=== PATIENT | female | born 1960 | race Caucasian/White ===

== ENCOUNTER → 2020-05-26 10:04 | Outpatient (CLI) | payer BC, SELFPAY ==
--- NOTE | ~2020-05-26 | XR_ITS ---
EXAMINATION: XR abdomen/kub 1V INDICATION: Calculus of the ureter TECHNIQUE: Supine views of the abdomen were obtained on 2 radiographs. COMPARISON: 05/23/2019 FINDINGS: There is a stable 3 mm stone of left kidney lower pole. The bowel gas pattern is normal. Ch olecystectomy clips are noted in the right upper quadrant. The visualized lung bases are clear. There are multiple phleboliths of the pelvis. IMPRESSION: 1. Stable left nephrolithiasis. Reviewed, dictated and finalized at location B.
== END ==
PROVIDERS: Visit Provider Urology
DX: N20.1 Calculus of ureter (principal)
CPT/HCPCS: 74018

== ENCOUNTER → 2021-05-18 08:40 | Outpatient (CLI) | payer BC, SELFPAY ==
--- NOTE | ~2021-05-18 | XR_ITS ---
EXAMINATION: XR abdomen/kub 1V INDICATION: Calculus of the kidney TECHNIQUE: Supine views of the abdomen were obtained on 2 radiographs. COMPARISON: 05/26/2020 FINDINGS: There is a stable 2 mm stone projecting in the left kidney lower pole. There are phlebolith s of the pelvis. No stones are identified in the expected location of the ureters or bladder. Surgica l clips in the right upper quadrant are likely from prior cholecystectomy. The lung bases are clear. There is a moderate volume of colonic stool. Mild hip osteoarthritis is noted. IMPRESSION: 1. Stable left nephrolithiasis. Reviewed, dictated and finalized at location B.
== END ==
PROVIDERS: PCP Nurse Practitioner Family; Visit Provider Urology
DX: N20.0 Calculus of kidney (principal)
CPT/HCPCS: 74018

== ENCOUNTER 2021-08-12 08:39 | Outpatient (CLI) | payer BC, SELFPAY ==
[2021-08-12 09:29] LABS: Basophils Absolute Auto 0.1 K/mm3 (0.0-0.1); Basophils Percent Auto 1.2 % (0.2-1.2); Eosinophils Absolute Auto 0.2 K/mm3 (0-0.3); Eosinophils Percent Auto 3.2 % (0-4.4); Hematocrit 45.3 % (37.0-47.0); Hemoglobin 15.2 g/dL (12.0-15.0); Immature Granulocyte Absolute 0.02 K/mm3 (0.00-0.031); Immature Granulocyte Percent A 0.4 % (0-0.5); Lymphocytes Absolute Auto 1.09 K/mm3 (0.9-3.2); Lymphocytes Percent Auto 21.9 % (18.3-44.2); Mean Corpuscular HGB Conc 33.6 g/dl (32-36); Mean Corpuscular Hemoglobin 30.5 pg (26-34); Mean Corpuscular Volume 90.8 fl (80-100); Mean Platelet Volume 9.4 fl (7.4-10.4); Monocytes Absolute Auto 0.5 K/mm3 (0.1-0.6); Monocytes Percent Auto 9.7 % (2.6-8.5); Neutrophils Absolute Auto 3.2 K/mm3 (1.3-6.7); Neutrophils Percent Auto 63.6 % (45.5-73.1); Platelet Count Result 340 k/mm3 (150-375); Red Blood Count 4.99 M/mm3 (4.2-5.4); Red Cell Distribution Width 16.5 % (11.5-14.5)
[2021-08-12 09:49] LABS: Alanine Aminotransferase 32 U/L (4-35); Albumin Level 4.5 g/dL (3.5-5.1); Alkaline Phosphatase 97 U/L (38-126); Anion Gap 6 mmol/L (8-16); Aspartate Amino Transferase 36 U/L (14-36); Bilirubin,Total 0.2 mg/dL (0.2-1.3); Blood Urea Nitrogen 15 mg/dL (7-17); Calcium 10.1 mg/dL (8.4-10.2); Carbon Dioxide 28 mmol/L (22-30); Chloride 105 mmol/L (98-107); Estimated Glomerular Filt Rate > 60; Glucose 100 mg/dL (65-110); Potassium 4.3 mmol/L (3.4-5.0); Sodium 139 mmol/L (137-145)
[2021-08-12 10:51] LABS: Iron 103 ug/dL (37-170)
[2021-08-12 10:55] LABS: Hepatitis B Surface Antigen Negative (Negative)
[2021-08-12 11:01] LABS: HAV RESULT Negative (Negative); Hepatitis B Core IgM Result Negative (Negative); Percent Iron Saturation 32 % (20-50)
[2021-08-12 11:12] LABS: Hepatitis C Virus Antibody Negative (Negative)
== END 2021-08-12 08:40 | disposition home or self-care (01) ==
PROVIDERS: PCP Nurse Practitioner Family; Visit Provider Nurse Practitioner Family
DX: R74.01 Elevation of levels of liver transaminase levels (principal); Z11.59 Encounter for screening for other viral diseases; L50.9 Urticaria, unspecified
CPT/HCPCS: 36415; 80053; 80074; 83520; 83540; 83550; 85025

== ENCOUNTER → 2021-11-26 08:26 | Outpatient (CLI) | payer BC, SELFPAY ==
--- NOTE | ~2021-11-26 | CT_ITS ---
EXAMINATION: CT sinus wo con DATE: 11/26/2021 08:45 INDICATION: Sinusitis. Lesion of the paranasal sinuses seen on outside MRI. TECHNIQUE: Computed tomography (CT) of the paranasal sinuses was performed without intravenous contra st. The dose-length product was 295.05 mGy-cm. Automated exposure control and iterative reconstructio n technique were employed. COMPARISON: None FINDINGS: There is mucosal thickening of the left frontoethmoid recess. Leftward nasal septal deviati on. Ostiomeatal units are patent. No air-fluid levels. Minimal mucosal thickening of the right maxill albert sinus. Mastoids are pneumatized. No depressed skull fractures. IMPRESSION: 1. Mild sinus disease involving the left frontal-ethmoid recess and right maxillary sinus. 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 Mild sinus disease involving the left frontal-ethmoid recess and right maxil piper sinus.
== END ==
PROVIDERS: PCP Nurse Practitioner Family; Visit Provider Nurse Practitioner Family
DX: J34.89 Other specified disorders of nose and nasal sinuses (principal); J32.8 Other chronic sinusitis
CPT/HCPCS: 70486

== ENCOUNTER 2022-01-13 08:26 | Outpatient (CLI) | payer BC, SELFPAY ==
[2022-01-13 09:30] LABS: Basophils Absolute Auto 0.1 K/mm3 (0.0-0.1); Basophils Percent Auto 1.4 % (0.2-1.2); Eosinophils Absolute Auto 0.2 K/mm3 (0-0.3); Eosinophils Percent Auto 4.5 % (0-4.4); Hemoglobin 14.6 g/dL (12.0-15.0); Immature Granulocyte Absolute 0.02 K/mm3 (0.00-0.031); Immature Granulocyte Percent A 0.4 % (0-0.5); Lymphocytes Absolute Auto 1.04 K/mm3 (0.9-3.2); Lymphocytes Percent Auto 21.2 % (18.3-44.2); Mean Corpuscular Hemoglobin 31.1 pg (26-34); Mean Corpuscular Volume 91.7 fl (80-100); Mean Platelet Volume 9.6 fl (7.4-10.4); Monocytes Absolute Auto 0.4 K/mm3 (0.1-0.6); Neutrophils Absolute Auto 3.1 K/mm3 (1.3-6.7); Neutrophils Percent Auto 63.5 % (45.5-73.1); Platelet Count Result 320 k/mm3 (150-375); Red Blood Count 4.69 M/mm3 (4.2-5.4); Red Cell Distribution Width 13.5 % (11.5-14.5); White Blood Count 4.9 K/mm3 (4.5-10.0)
[2022-01-13 09:47] LABS: Alanine Aminotransferase 24 U/L (4-35); Albumin Level 4.3 g/dL (3.5-5.1); Alkaline Phosphatase 89 U/L (38-126); Anion Gap 3 mmol/L (8-16); Aspartate Amino Transferase 33 U/L (14-36); Bilirubin,Total 0.4 mg/dL (0.2-1.3); Blood Urea Nitrogen 20 mg/dL (7-17); Calcium 9.6 mg/dL (8.4-10.2); Carbon Dioxide 28 mmol/L (22-30); Chloride 107 mmol/L (98-107); Estimated Glomerular Filt Rate > 60; Glucose 98 mg/dL (65-110); Potassium 3.8 mmol/L (3.4-5.0); Sodium 138 mmol/L (137-145)
== END 2022-01-13 08:27 | disposition home or self-care (01) ==
PROVIDERS: PCP Nurse Practitioner Family
DX: Z51.81 Encounter for therapeutic drug level monitoring (principal); Z79.899 Other long term (current) drug therapy; D47.01 Cutaneous mastocytosis
CPT/HCPCS: 36415; 80053; 83520; 85025

== ENCOUNTER 2022-11-23 21:34 | Outpatient (NON) | payer BC, SELFPAY | END 2022-11-23 21:35 | disposition home or self-care (01) | LOC: ANHLAB 21:35 | PROVIDERS: PCP Family Medicine; Visit Provider Nurse Practitioner Family | DX: R31.9 Hematuria, unspecified (principal) | CPT/HCPCS: 87086 ==

== ENCOUNTER 2022-12-02 15:59 | Outpatient (CLI) | payer BC, SELFPAY ==
--- NOTE | ~2022-12-02 | CT_ITS ---
EXAMINATION: CT abdomen pelvis wo con DATE: 12/02/2022 16:22 INDICATION: Left flank pain. TECHNIQUE: Computed tomography (CT) of the abdomen and pelvis was performed without intravenous contr ast. Automated exposure control and iterative reconstruction technique were employed. The dose-length product was 448.07 mGy-cm. COMPARISON: CT abdomen and pelvis 05/31/2019 FINDINGS: The visualized portions of the lung bases demonstrate mild atelectasis. No pleural effusion . The heart size is normal. No pericardial effusion. There is a small sliding hiatal hernia. The live r and spleen are normal. There are changes of cholecystectomy. The pancreas, adrenal glands, and righ t kidney are normal. There are 1 mm and 4 mm stones in left kidney. There is diverticulosis of the co ian without evidence of diverticulitis. There are no dilated loops of bowel. The appendix is not visu alized. There are no pathologically enlarged lymph nodes. There is no free intraperitoneal fluid. The re is a right inguinal hernia containing fat. There is lumbar levocurvature and severe spondylosis. IMPRESSION: 1. Nonobstructing left kidney stones. 2. Small sliding hiatal hernia. Reviewed, dictated and finalized at location A. R OPERATOR
== END 2022-12-02 16:00 | disposition home or self-care (01) ==
PROVIDERS: PCP Family Medicine; Visit Provider Nurse Practitioner Family
DX: K44.9 Diaphragmatic hernia without obstruction or gangrene (principal); N20.0 Calculus of kidney
CPT/HCPCS: 74176

== ENCOUNTER → 2023-07-08 08:10 | Outpatient (CLI) | payer BC, SELFPAY ==
--- NOTE | ~2023-07-08 | US_ITS ---
EXAMINATION: US abdomen complete DATE: 07/08/2023 08:40 INDICATION: Elevated liver enzymes TECHNIQUE: Multiple grayscale and Doppler ultrasound images of the abdomen were obtained. COMPARISON: CT, 12/02/2022 FINDINGS: The head and body of the pancreas are normal. The pancreatic tail is obscured by bowel gas. The liver is normal with normal echogenicity and echotexture. No surface nodularity. Normal hepatope ana flow in the main portal vein. The gallbladder is surgically absent. The normal common bile duct m easures 4 mm. The visualized portions of the aorta and inferior vena cava are normal. The spleen is normal in appearance and measures 7.7 cm. The right kidney measures 11.3 x 4.0 x 4.4 cm . The left kidney measures 13.2 x 5.3 x 5.4 cm. The kidneys demonstrate normal parenchymal echogenici ty. There is no hydronephrosis. IMPRESSION: 1. No sonographic correlate for the patient's symptoms. Reviewed, dictated and finalized at location B.
== END ==
PROVIDERS: PCP Family Medicine; Visit Provider Nurse Practitioner Family
DX: R74.01 Elevation of levels of liver transaminase levels (principal)
CPT/HCPCS: 76700

== ENCOUNTER 2023-08-19 00:38 | Day surgery (SDC) | payer BC, SELFPAY ==
[2023-08-10 09:25] VITALS: BMI 25.9
--- NOTE | 2023-08-18 13:28 | PM.HPGS ---
History of Present Illness History of Present Illness Consent: Risks, benefits, and alternatives have been discussed and questions answered. Patient agrees to proceed with procedure. Chief complaint: Fam hx of neoplasm of digestive organs Narrative: Hetal Alonzo is a 63 year old female Referred for colonoscopy due to family history of colon cancer. Review of Systems Review of Systems: All systems reviewed & are unremarkable except as noted in HPI and below PMFSH Past Medical History Medical History Arthritis Diverticulitis Fibroids Finger fracture History of kidney stones Holter monitor, abnormal Mastocytosis (~07/2021) Migraine Palpitations Surgical History Surgical History H/O cystoscopy H/O lithotripsy H/O: hysterectomy History of cholecystectomy History of hip surgery (~2018) RT hip ligament repair History of rhinoplasty History of tubal ligation Family History Family History Grandparent Carcinoma of colon Family history of heart disease in male family member before age 55 Father Family history of diabetes mellitus in first degree relative Family history of heart disease in male family member before age 55 Social History Social History Smoking status: Never smoker Alcohol intake: never Substance use: never Substance use type: does not use Lack of Transportation: No Lack of Food: Never True Current Housing: I Have Housing Concerned About Future Housing: No Difficulty Paying Gas/Electric Bills: No Difficulty Paying for Meds: No Currently Unemployed: No Education: Trade/Vocational Certificate Difficulty w/ Childcare or Family Care: No Gender identity (if verbalized by the patient): Female Meds Home Medications and Allergies Home Medications Medication Instructions Recorded Confirmed Type fluticasone propionate 50 2 spray intranasal BID #16 mL 12/09/21 08/10/23 Rx mcg/actuation nasal spray,suspension (Flonase Allergy Relief) estradiol 0.0375 mg/24 hr 1 patch transdermal 2XW 11/23/22 08/10/23 History semiweekly transdermal patch estradiol 10 mcg vaginal tablet 10 mcg vaginal 2XW 11/23/22 08/10/23 History sumatriptan succinate 50 mg tablet 50 mg PO ONCE PRN Migraines 11/23/22 08/10/23 History azelastine 137 mcg (0.1 %) nasal 1 spray intranasal Q12H PRN 07/05/23 08/10/23 History spray aerosol allergies nortriptyline 25 mg capsule 25 mg PO DAILY 07/05/23 08/10/23 History Allergies Allergy/AdvReac Type Severity Reaction Status Date / Time verapamil AdvReac Mild Chest Pain Verified 08/19/23 09:48 Exam Const: General: alert Orientation/consciousness: patient oriented x3 Resp: Auscultation: clear to auscultation bilaterally Cardio: Rhythm: regular rhythm GI: GI Palp: Yes Soft to palpation and No Tenderness to palpation present (GI) Neuro: General: patient oriented x3 Assessment and Plan Assessment and plan (1) Colon cancer screening: Code(s): Z12.11 - Encounter for screening for malignant neoplasm of colon Status: Acute Assessment and Plan: Colonoscopy with possible biopsy or polypectomy or cautery or injection of substances.
[2023-08-19 09:50] VITALS: BP 150/94; PULSE 107; RESP 18; TEMP 36.6; O2SAT 100
[2023-08-19] MEDS: LACTATED RINGERS 1,000 ML 150 ML IV CONT (09:57)
--- NOTE | 2023-08-19 10:40 | WPDANESEPPF ---
Anes - Initial Pre Proc Eval Procedure: Operation Date: 08/19/23 10:45 Proposed Procedures p Colonoscopy - Alli Diaz MD Date/Time: 08/19/23 10:40 Surgeon: Alli Diaz MD Pre Op Diagnosis: Fam hx of neoplasm of digestive organs Patient Data Age: 63 Gender: F Height: 1.68 m Weight: 69.6 kg Last Vital Signs Temp 97.9 F 08/19/23 09:50 Pulse 107 H 08/19/23 09:50 Resp 18 08/19/23 09:50 BP 150/94 H 08/19/23 09:50 Pulse Ox 100 08/19/23 09:50 O2 Del Method Room Air 08/19/23 09:50 Allergies Allergy/AdvReac Type Severity Reaction Status Date / Time verapamil AdvReac Mild Chest Pain Verified 08/19/23 09:48 Home Medications Medication Instructions Recorded Confirmed Type fluticasone propionate 50 2 spray intranasal BID #16 mL 12/09/21 08/10/23 Rx mcg/actuation nasal spray,suspension (Flonase Allergy Relief) estradiol 0.0375 mg/24 hr 1 patch transdermal 2XW 11/23/22 08/10/23 History semiweekly transdermal patch estradiol 10 mcg vaginal tablet 10 mcg vaginal 2XW 11/23/22 08/10/23 History sumatriptan succinate 50 mg tablet 50 mg PO ONCE PRN Migraines 11/23/22 08/10/23 History azelastine 137 mcg (0.1 %) nasal 1 spray intranasal Q12H PRN 07/05/23 08/10/23 History spray aerosol allergies nortriptyline 25 mg capsule 25 mg PO DAILY 07/05/23 08/10/23 History Patient hx anesthesia problems: none Family hx anesthesia problems: none Results Review: All pre-operative results and documents have been reviewed as part of the pre-operative evaluation. [facility] Past Medical History Medical History Arthritis Diverticulitis Fibroids Finger fracture History of kidney stones Holter monitor, abnormal Mastocytosis (~07/2021) Migraine Palpitations Surgical History Surgical History H/O cystoscopy H/O lithotripsy H/O: hysterectomy History of cholecystectomy History of hip surgery (~2019) RT hip ligament repair History of rhinoplasty History of tubal ligation Family History Family History Grandparent Carcinoma of colon Family history of heart disease in male family member before age 55 Father Family history of diabetes mellitus in first degree relative Family history of heart disease in male family member before age 55 Social History Social History Smoking status: Never smoker Alcohol intake: never Substance use: never Substance use type: does not use Lack of Transportation: No Lack of Food: Never True Current Housing: I Have Housing Concerned About Future Housing: No Difficulty Paying Gas/Electric Bills: No Difficulty Paying for Meds: No Currently Unemployed: No Education: Trade/Vocational Certificate Difficulty w/ Childcare or Family Care: No Gender identity (if verbalized by the patient): Female Anes - Eval Final PreProcedure Day of Procedure 08/19/23 10:40 Patient weight: normal Heart: regular rate and rhythm Lungs: clear to auscultation Airway: Mallampati scale class II Neurological: alert and oriented Last oral intake: >/= 8 hours ASA classification: II Emergent: no Anesthetic plan: proceed Anesthesia type and monitoring: general GIVS and standard monitoring Results Review: All pre-operative results and documents have been reviewed as part of the pre-operative evaluation. Informed Consent: The patient's anesthetic plan and its attendant risks and benefits were discussed with the patient/family/POA. Questions were solicited and answers provided to the satisfaction of the patient/family/POA.
[2023-08-19 11:16] VITALS: BP 121/80; PULSE 80; RESP 15; O2SAT 100
[2023-08-19 11:26] VITALS: BP 115/65; PULSE 86; RESP 13; O2SAT 100
[2023-08-19 11:36] VITALS: BP 132/86; PULSE 86; RESP 13; O2SAT 100
== END 2023-08-19 11:50 | disposition home or self-care (01) ==
PROVIDERS: PCP Family Medicine; Visit Provider Internal Medicine Gastroenterology
PROC: 0DJD8ZZ Inspection of Lower Intestinal Tract, Via Natural or Artificial Opening Endoscopic (ICD-10-PCS; CPT 45378; principal; 2023-08-19 10:45)
DX: Z12.11 Encounter for screening for malignant neoplasm of colon (principal); K64.8 Other hemorrhoids; K57.30 Diverticulosis of large intestine without perforation or abscess without bleeding; Z80.0 Family history of malignant neoplasm of digestive organs
CPT/HCPCS: 45378; J2704; J7120

== ENCOUNTER 2024-02-01 10:36 | Outpatient (CLI) | payer BC, SELFPAY ==
[2024-02-01 12:17] LABS: Basophils Absolute Auto 0.1 K/mm3 (0.0-0.1); Basophils Percent Auto 1.5 % (0.2-1.2); Eosinophils Absolute Auto 0.2 K/mm3 (0-0.3); Eosinophils Percent Auto 3.9 % (0-4.4); Hematocrit 44.8 % (37.0-47.0); Hemoglobin 14.4 g/dL (12.0-15.0); Immature Granulocyte Absolute 0.02 K/mm3 (0.00-0.031); Immature Granulocyte Percent A 0.4 % (0-0.5); Lymphocytes Absolute Auto 1.37 K/mm3 (0.9-3.2); Lymphocytes Percent Auto 25.4 % (18.3-44.2); Mean Corpuscular HGB Conc 32.1 g/dl (32-36); Mean Corpuscular Hemoglobin 29.5 pg (26-34); Mean Corpuscular Volume 91.8 fl (80-100); Mean Platelet Volume 9.6 fl (7.4-10.4); Monocytes Absolute Auto 0.5 K/mm3 (0.1-0.6); Monocytes Percent Auto 9.3 % (2.6-8.5); Neutrophils Absolute Auto 3.2 K/mm3 (1.3-6.7); Neutrophils Percent Auto 59.5 % (45.5-73.1); Platelet Count Result 398 k/mm3 (150-375); Red Blood Count 4.88 M/mm3 (4.2-5.4); Red Cell Distribution Width 15.9 % (11.5-14.5); White Blood Count 5.4 K/mm3 (4.5-10.0)
[2024-02-01 12:25] LABS: Alanine Aminotransferase 36 U/L (6-35); Albumin Level 4.3 g/dL (3.5-5.1); Alkaline Phosphatase 105 U/L (38-126); Anion Gap 3 mmol/L (4-12); Aspartate Amino Transferase 63 U/L (14-36); Bilirubin,Total 0.5 mg/dL (0.2-1.3); Blood Urea Nitrogen 15 mg/dL (7-17); Carbon Dioxide 27 mmol/L (22-30); Chloride 107 mmol/L (98-107); Cholesterol 219 mg/dL (0-200); Estimated Glomerular Filt Rate > 60; Glucose 101 mg/dL (65-110); HDL Direct 77 mg/dL; Potassium 4.1 mmol/L (3.4-5.0); Sodium 137 mmol/L (137-145); Triglycerides 86 mg/dL (<150)
[2024-02-01 12:36] LABS: LDL Cholesterol Direct 115 mg/dL
[2024-02-02 00:03] LABS: Hemoglobin A1C 5.1 % (<5.7)
[2024-02-04 11:10] LABS: Vitamin D 1,25 (OH)2 Total 77 pg/mL (18-72); Vitamin D2 1,25 (OH)2 <8 pg/mL; Vitamin D3 1,25 (OH)2 77 pg/mL
== END 2024-02-01 10:37 | disposition home or self-care (01) ==
LOC: ANHGOSHLAB 10:37
PROVIDERS: PCP Family Medicine; Visit Provider Nurse Practitioner Family
DX: Z00.00 Encounter for general adult medical examination without abnormal findings (principal); E55.9 Vitamin D deficiency, unspecified; E78.5 Hyperlipidemia, unspecified; R73.03 Prediabetes
CPT/HCPCS: 36415; 80053; 80061; 82652; 83036; 84443; 85025

== ENCOUNTER 2024-08-07 13:52 | Outpatient (CLI) | payer BC, SELFPAY ==
--- NOTE | ~2024-08-07 | XR_ITS ---
XR tibia fibula RT 2V Ordering provider: Arabella Littlejohn DO History: . fall 1 week ago pain distal anterior tib-fib . Comparison: None. FINDINGS: BONES: No acute fracture or dislocation. JOINT SPACES: Normal. SOFT TISSUES: Normal. IMPRESSION: No acute osseous abnormality right leg. Reviewed, dictated and finalized at location A.
== END 2024-08-07 13:53 | disposition home or self-care (01) ==
LOC: GOSHIMG 13:53
PROVIDERS: PCP Family Medicine; Visit Provider Family Medicine
DX: M79.661 Pain in right lower leg (principal)
CPT/HCPCS: 73590

== ENCOUNTER 2025-04-01 15:44 | Outpatient (CLI) | payer BC, SELFPAY ==
--- NOTE | ~2025-04-01 | XR_ITS ---
Supine and upright views of the abdomen Clinical history: pain Findings: Bowel gas pattern is nonspecific. No evidence for obstruction or free air. Possible constip ation. No abnormal mass lesion or calcification is seen. Osseous structures are intact. Impression: Possible constipation. Reviewed, dictated and finalized at [facility]. Impression: Possible constipation.
== END 2025-04-01 15:45 | disposition home or self-care (01) ==
LOC: GOSHIMG 15:45
PROVIDERS: PCP Urology; Visit Provider Family Medicine
DX: M54.9 Dorsalgia, unspecified (principal); N20.0 Calculus of kidney
CPT/HCPCS: 74018

== ENCOUNTER 2025-08-02 08:48 | Outpatient (CLI) | payer BC, MEDICARE, SELFPAY ==
--- NOTE | ~2025-08-02 | DEXA_ITS ---
Bone Density Report Name: ESTEBAN SETHI Age: 65 Sex: Female Ethnicity: White Date of : 1960 Indication: postmenopausal; screening for osteoporosis; prior fracture; hysterectomy; Referring Provider: Arabella Littlejohn Study: Bone densitometry was performed. Exam Date: August 02, 2025 Accession number: [id number] Bone Density: Region BMD T-score Z-score Classification AP Spine(L1-L4) 1.000 -0.4 1.4 Normal Femoral Neck (Left) 0.652 -1.8 -0.2 Osteopenia Total Hip (Left) 0.831 -0.9 0.3 Normal Femoral Neck (Right) 0.696 -1.4 0.1 Osteopenia Total Hip (Right) 0.820 -1.0 0.2 Normal Total Hip Mean 0.825 -1.0 0.3 Normal World Health Organization criteria for BMD impression classify patients as: Normal (T-score at or above -1.0), Osteopenia (T-score between -1.0 and -2.5), or Osteoporosis (T-score at or below -2.5). 10-year Fracture Risk(1): Major Osteoporotic Fracture 16% Hip Fracture 2.0% Reported Risk Factors: [place] (), Neck BMD=0.652, BMI=26.8, previous fracture (1) FRAX(R) Version 3.08. Fracture probability calculated for an untreated patient. Fracture probability may be lower if the patient has received treatment. Previous Exams: -- Region Exam Age BMD T-score BMD Change BMD Change Date g/cm2 vs Baseline vs Previous -- AP Spine (L1-L4) 08/02/2025 65 1.000 -0.4 -8.0%* -8.0%* 01/21/2017 56 1.087 0.4 Total Hip(Left) 08/02/2025 65 0.831 -0.9 -11.2%* -11.2%* 01/21/2017 56 0.936 -0.1 Total Hip(Right) 08/02/2025 65 0.820 -1.0 -10.7%* -10.7%* 01/21/2017 56 0.918 -0.2 -- *Denotes significance at 95% confidence level, LSC for AP Spine = 0.022 g/cm2, LSC for Total Hip = 0.027 g/cm2 Clinical Information Provided by Patient: Has had a low trauma fracture Has used the following medications: HRT (i.e. estrogen/hormone therapy), Calcium Has the following medical conditions: Hysterectomy Patient maximum height was 66 Menopause Age: 33 No regular weight bearing exercise Onset of menses at age 13 Number of children 4 Impression: The patient has low bone mass, based on the Left Femoral Neck T-score. The patient has an estimated ten-year risk of hip fracture of 2% and an estimated ten-year risk of major fracture of 16%, based on the WHO FRAX algorithm. The patient has risk factors, including: previous fracture. The BMD for the AP Spine (L1-L4) decreased, changing by -8.0% since the last DXA exam. The BMD for the Total Hip(Left) decreased, changing by -11.2% since the last DXA exam. The BMD for the Total Hip(Right) decreased, changing by -10.7% since the last DXA exam. Discussion: BONE DENSITY IS LOW AT ONE OR MORE SKELETAL SITES. This patient's lowest T-score is low at one or more skeletal sites. It meets the World Health Organization's (WHO) criteria for ?low bone mass? (T-score between -1.0 and -2.5). The patient's 10-year risk of fracture as calculated by FRAX is less than the threshold where pharmacological therapy is recommended by the National Osteoporosis Foundation (NOF). However, all treatment decisions require clinical judgment and consideration of individual patient factors, including patient preferences, comorbidities, previous drug use, risk factors not captured in the FRAX model (e.g., frailty, falls, vitamin D deficiency, increased bone turnover, interval significant decline in bone density) and possible under or overestimation of fracture risk by FRAX. The patient should follow a healthful lifestyle (good nutrition with adequate calcium and vitamin D, and appropriate weight-bearing exercise). Follow-Up: Consider repeating this study in 2 years to reassess this patient's status, or sooner if there is some new clinical indication. Reported by: EDWARDO on 08/02/2025 9:13:00 AM. Reviewed, dictated and finalized at location A.
== END 2025-08-02 08:49 | disposition home or self-care (01) ==
LOC: MICIMG 08:50
PROVIDERS: PCP Family Medicine; Visit Provider Family Medicine
DX: M85.89 Other specified disorders of bone density and structure, multiple sites (principal); Z13.820 Encounter for screening for osteoporosis
CPT/HCPCS: 77080